=== PATIENT | male | born 1955 | race Caucasian/White ===

== ENCOUNTER 2016-08-27 05:41 | Day surgery (SDC) | payer OTHER ==
[~2016-08-27] VITALS: Ht 180.3 cm; Wt 164.2 kg
--- NOTE | ~2016-08-27 | O ---
[facility] [place] [address] OPERATIVE REPORT Name: ALONZO DELA CRUZ Room #: 150-7 [facility]..#: [id number] Admission: 08/27/16 Attend Phys: Michelet Mercado MD Discharge: Date of : 59 Report #: [id number] THIS REPORT FOR: //name// CC: Cj Mercado DATE OF SERVICE: 08/27/2016 PREOPERATIVE DIAGNOSIS: Right ankle retained hardware. POSTOPERATIVE DIAGNOSIS: Right ankle retained hardware. PROCEDURE: Right ankle hardware removal. SURGEON: Michelet Mercado M.D. ANESTHESIA: General. ESTIMATED BLOOD LOSS: 10 mL. DRAINS: No drains. TOURNIQUET TIME: 45 minutes. DESCRIPTION OF PROCEDURE: The patient brought to the operating room where he was placed under general anesthesia. Once under adequate general anesthesia, his right lower extremity was prepped and draped in sterile manner. Extremity was elevated and tourniquet placed to 250 mmHg. A lateral incision over the hardware was then made. This was dissected directly down to the bone and hardware sharply, which was then subsequently exposed and the screws were removed, one was a large fragment screw, the remainder were a 6.5 mm cannulated screws, three of those. Once removed, the one-third tubular plate was then extracted from the fibula utilizing an osteotome and a Basil. The wounds were then irrigated copiously and closed with 2-0 Vicryl in the subcutaneous tissues and mikhail for the skin. Wounds were dressed with Xeroform, 4 x 4s and sterile soft compressive dressing was placed. Tourniquet was let down at 45 minutes. Toes were pink and warm with good capillary refill. There were no complications from the procedure. The patient tolerated the procedure well and went to the recovery room without incident. By: [id number] Michelet Mercado MD /nt
--- NOTE | ~2016-08-27 | EKG ---
[place] [address] [facility] [employer] [address] ELECTROCARDIOGRAM REPORT Name: ALONZO DELA CRUZ Room #: [facility]#: [id number] Admission: 08/27/16 Attend Phys: Michelet Mercado MD Discharge: 08/27/16 Date of : 59 Report #: [id number] THIS REPORT FOR: //name// [facility] Test Date: 2016-08-27 Test Time: 11:12:21 Pat Name: ALONZO DELA CRUZ Department: Room: 150 7 Gender: M Production Material Handler: LOVE : 1955 Requested By: Michelet Mercado Order Number: [id number] MD: Jason Barrera Measurements Intervals [place] Rate: 84 P: 37 ME: 183 QRS: 34 QRSD: 105 T: 74 QT: 367 QTc: 434 Interpretive Statements Sinus rhythm RSR' in V1 or V2, right VCD or RVH No previous ECG available for comparison Electronically Signed On 08-29-2016 11:27:55 CDT by Jason Barrera [email or web address] <ELECTRONICALLY SIGNED> By: Jason Barrera MD, [facility] 08/29/16 1127 11 11 Jason Barrera MD, [facility] /EPI
[~2016-08-27 05:41] MED LIST: ACTOS15 MG PO; COMBIGAN EYE DR10 ML OPHTHALMIC; LISINOPRIL-HCT1 EAC2 PO; LISINOPRIL20 MG PO; LORTAB; LUMIGAN2.5 M1 OP; METFORMIN HCL500 MG PO; METFORMIN OR; PERCOCET 5-3251 EACH PO
[2016-08-27 11:15] LABS: CALCIUM 9.4 mg/dL (8.5-10.1); CREATININE 1.5 mg/dL (0.7-1.3); POTASSIUM 4.5 mmol/L (3.5-5.1)
[2016-08-27 11:45] VITALS: BP 161/94
[2016-08-27] MEDS ORDERED: HYDROCODON-ACE1 EA10 PO (13:48)
[2016-08-27 14:36] VITALS: BP 161/94
== END 2016-08-27 16:14 ==
LOC: OR 05:41 → TBA 05:41 → OR 08:38
PROVIDERS: Orthopaedic Surgery Foot and Ankle Surgery
DX: M79.5 Residual foreign body in soft tissue (principal); I10 Essential (primary) hypertension; E11.9 Type 2 diabetes mellitus without complications
CPT/HCPCS: 50010; 50101; 50386; 51412; 56524; 57091; 62110; 62900; 64031; 70005

== ENCOUNTER → 2016-10-21 | Outpatient (CLI) | payer OTHER ==
[~2016-10-21] MED LIST changes: +HYDROCODON-ACE1 EA10 PO
== END ==
LOC: HYPER 07:12
DX: T81.89XA Other complications of procedures, not elsewhere classified, initial encounter (principal); E11.69 Type 2 diabetes mellitus with other specified complication; E66.9 Obesity, unspecified; Z68.42 Body mass index [BMI] 45.0-49.9, adult; Y92.89 Other specified places as the place of occurrence of the external cause; Y83.8 Other surgical procedures as the cause of abnormal reaction of the patient, or of later complication, without mention of misadventure at the time of the procedure

== ENCOUNTER → 2016-10-28 | Outpatient (CLI) | payer OTHER | LOC: HYPER 07:21 | DX: T81.31XD Disruption of external operation (surgical) wound, not elsewhere classified, subsequent encounter (principal); E11.69 Type 2 diabetes mellitus with other specified complication; E66.9 Obesity, unspecified; Z68.42 Body mass index [BMI] 45.0-49.9, adult; Y83.8 Other surgical procedures as the cause of abnormal reaction of the patient, or of later complication, without mention of misadventure at the time of the procedure ==

== ENCOUNTER → 2016-11-11 | Outpatient (CLI) | payer OTHER | LOC: HYPER 07:21 | DX: T81.31XD Disruption of external operation (surgical) wound, not elsewhere classified, subsequent encounter (principal); E66.9 Obesity, unspecified; Y83.8 Other surgical procedures as the cause of abnormal reaction of the patient, or of later complication, without mention of misadventure at the time of the procedure ==

== ENCOUNTER → 2016-11-29 | Outpatient (CLI) | payer OTHER | LOC: HYPER 06:59 | DX: T81.31XD Disruption of external operation (surgical) wound, not elsewhere classified, subsequent encounter (principal); Y83.8 Other surgical procedures as the cause of abnormal reaction of the patient, or of later complication, without mention of misadventure at the time of the procedure; E66.9 Obesity, unspecified; Z68.42 Body mass index [BMI] 45.0-49.9, adult; E11.9 Type 2 diabetes mellitus without complications ==

== ENCOUNTER → 2017-02-10 | Outpatient (CLI) | payer OTHER | LOC: HYPER 07:02 | DX: T81.89XD Other complications of procedures, not elsewhere classified, subsequent encounter (principal); E11.622 Type 2 diabetes mellitus with other skin ulcer; L97.811 Non-pressure chronic ulcer of other part of right lower leg limited to breakdown of skin; I87.311 Chronic venous hypertension (idiopathic) with ulcer of right lower extremity; E66.9 Obesity, unspecified; Z68.41 Body mass index [BMI] 40.0-44.9, adult; Y83.8 Other surgical procedures as the cause of abnormal reaction of the patient, or of later complication, without mention of misadventure at the time of the procedure ==